=== PATIENT | female | born 1965 | race Caucasian/White ===

== ENCOUNTER 2016-11-11 17:21 | Emergency (ER) | payer BC ==
[~2016-11-11] VITALS: Ht 162.6 cm; Wt 76.2 kg
[2016-11-11 19:01] LABS: HEMATOCRIT 42.4 % (36.0-46.0); MCH 30.5 PG (29.0-34.0); MCHC 32.8 G/DL (30.0-36.0); MEAN PLAT.VOLUME 10.7 uM^3 (9.5-12.4); PLATELET COUNT 238 K/uL (156-360); RBC DIS.WIDTH-CV 12.2 % (11.8-14.6); RBC DIS.WIDTH-SD 42.2 % (39-53); RED BLOOD COUNT 4.56 M/uL (3.80-5.20); WHITE BLOOD COUNT 6.3 K/uL (4.1-10.2)
[2016-11-11 19:09] LABS: CHLORIDE 109 mEq/L (99-109); SODIUM 142 mEq/L (136-147)
[2016-11-11 19:11] LABS: GLUCOSE 80 mg/dL (70-99)
[2016-11-11 19:12] LABS: ANION GAP 9 MEQ/L (2-14)
[2016-11-11 19:15] LABS: GFR ESTIMATE (CALCULATED) > 59 mL/min/
[2016-11-11 19:16] LABS: UREA NITROGEN (BUN) 16 mg/dL (9-23)
[2016-11-11 19:20] LABS: TROP-I INTERPRETATION NEGATIVE; TROPONIN-I < 0.01 ng/mL (0.0-0.30)
[2016-11-11 21:13] LABS: TROP-I INTERPRETATION NEGATIVE; TROPONIN-I < 0.01 ng/mL (0.0-0.30)
[2016-11-11] MEDS ORDERED: MOTRIN800 MG PO (22:26)
[2016-11-11 23:05] VITALS: BP 120/66
== END 2016-11-11 23:05 | disposition home or self-care (01) ==
LOC: EME 17:21
DX: R07.89 Other chest pain (principal); R00.2 Palpitations; M79.602 Pain in left arm; Z82.49 Family history of ischemic heart disease and other diseases of the circulatory system
CPT/HCPCS: 71020; 80048; 84484; 85027; 93005; 99281; 99284